=== PATIENT | female | born 1960 | race Two or more races ===

== ENCOUNTER → 2016-09-26 | Outpatient (CLI) | payer MEDICAID ==
--- NOTE | 2016-09-26 12:14 | ST Modified Barium Swallow ---
Recommendation - Recommendations Recommendations: Swallow function is within normal limits. May need further GI work up due to history of reflux and complaints of food coming up. Medical Diagnoses - Medical Diagnoses Medical Diagnosis Description & ICD-10 Code(s): dysphagia Other Medical Diagnoses/Co-Morbidities: reflux - ICD-10 Tx Diagnosis Coding (1) Dysphagia ICD-10 Code(s): R13.10 - DYSPHAGIA, UNSPECIFIED ST Modified Barium Swallow - General Date: 09/26/16 Referring Physician: Dr. Marsh Risks/Precautions: None Reason for Referral: Patient complains of globus sensation - History History obtained from: Patient Medications: omeprazole Allergies: none - Functional Status Prior Functional Status: INDEPENDENT: feeding - WNL - Subjective Current Nutritional Means: PO Current PO diet: Regular Current symptoms: c/o Globus sensation Pain: 0/5 - Objective Assessment: Upright, Left Lateral - Food Trials Used Food trials used: Thin liquids, Pureed, Regular The patient: Was Able to Self Feed - Oral-Motor Skills Dentition: Full Laryngeal Function: clear voicing - Assessment Oral prep: Normal Labial closure: Adequate Mastication: Adequate Lingual Movement: Normal Oral stage: Normal for this Procedure - Pharyngeal Stage Initiation of Pharyngeal Stage Reflex: Normal Decreased laryngeal elevation: No Reduced Velopharyngeal Closure: no Reduced pressure generation: No reduced tongue-based retraction: No Pre-swallow pooling in valleculae: None Pre-Swallow pooling in pyriforms: None Reduced Thyro-Hyoid approximation: No Reduced epiglottic excursion: No Reduced pharyngeal peristalsis/contraction: No Post-swallow residulas vallecular: None Post-Swallow residuals in pyriforms: None Post-Swallow Residuals: no residuals - Fall Risk Assessment Medications/Conditions that increase fall risks include: Antidepressants, sedatives, anti-arrhythmic, diuretic, benzodiazipenes, neuroleptics. BP regulation problems, cardiac problems, balance or gait deficits, neurological problems. Is patient considered at risk for falls: no Fall Risk Actions Taken: No action needed - Behavioral Observations Mental Status: Alert & Oriented X3 - Treatment / Educational Needs: Treatment/Education Needs: Treatment consisted of patient education on the role of the Speech Pathologist. Patient's plan of care and golas were communicated as well as scheduling and attendance policies. Recommendations for initial home program were shared. Patient demonstrated understanding and verbalized agreement. Initial home program recommendations: Patient educated on her swallow function, which is within normal limits. - Impression/Summary Patient presents with: Normal swallow at eval - Recommendations Solid diet recommendations: Regular Liquid Diet Modification: Thin Dysphagia therapy with [employer]TE[employer]CE WORKER: no - Plan of Care Summary: Normal evaluation findings, no treatment recommended. Patient to follow-up with referring physician: No Strategies to optimize patient understanding include:: ongoing assessment of educational needs, implementation of educational strategies, and re-education. - - -: Thank you for the opportunity to work with this patient and his/her family. Should you have any questions about this patient's plan or progress, I can be reached at [phone]. Charge G Code? - - -: No
== END ==
LOC: RAD 07:51
PROVIDERS: ATTEND Otolaryngology
DX: R13.10 Dysphagia, unspecified (principal)
CPT/HCPCS: 74230